=== PATIENT | female | born 1990 ===

== ENCOUNTER 2025-04-23 08:07 | Outpatient (AMB) | payer OTHER, SELFPAY | END 2025-04-23 09:19 | disposition left against medical advice (07) | LOC: HO.HMGAL 08:07 | PROVIDERS: PCP Internal Medicine; Visit Provider Registered Nurse Emergency | DX: J30.89 Other allergic rhinitis (principal) | CPT/HCPCS: 95117; 95165 ==

== ENCOUNTER 2025-05-07 15:58 | Outpatient (AMB) | payer OTHER, SELFPAY ==
--- OUTSIDE RECORDS SUMMARY | 2025-05-07 18:40 | XMS_ITS | Clinical Summary ---
Author Organization [facility] Address [address] [place] [address] Care Team Providers Care Civil Design Technician Name Role Phone Darell Pitt MD Primary Care Provider [phone] Allergies Active Allergy Reactions Criticality Noted Date Comments Aspirin Medium 06/23/2023 Respiratory symptoms Apixaban 04/11/2018 Penicillins 04/11/2018 Medications Medication Sig Dispensed Refills Start Date End Date Status cetirizine (ZYRTEC) 10 MG tablet Take 1 tablet (10 mg total) by mouth daily. 0 Active medroxyPROGESTERone (DEPO-PROVERA) 150 MG/ML injection Inject 1 mL (150 mg total) into the muscle every 3 (three) months. 0 Active valsartan (DIOVAN) tablet 80 mg Take 1 tablet (80 mg total) by mouth daily. 0 05/27/2020 Active metFORMIN (GLUCOPHAGE) tablet 500 mg Take 1 tablet (500 mg total) by mouth daily. 1/2 a pill in 1am, 1/2 a pill in pm to total 500mg daily 0 Active omeprazole (PriLOSEC) 20 MG capsule Take 1 capsule (20 mg total) by mouth daily. 0 Active escitalopram (LEXAPRO) 5 MG tablet Take 1 tablet (5 mg total) by mouth daily. 0 Active Xarelto 10 MG tablet TAKE 1 TABLET BY MOUTH EVERY DAY 90 tablet 0 05/30/2024 Active Active Problems Problem Noted Date Diagnosed Date Type 2 diabetes mellitus wit hout complication, without long-term current use of insulin 01/15/2022 Portal vein thrombosis 08/08/2019 Secondary hypercoagulability disorder 08/08/2019 Gross hematuria 08/08/2019 Nephrolithiasis 08/08/2019 Social History Tobacco Use Types Packs/Day Years Used Date Smoking Tobacco: Never Smokeless Tobacco: Never Alcohol Use Standard Drinks/Week Comments Yes 0 (1 standard drink = 0.6 oz pur e alcohol) socially Sex and Gender Information Value Date Recorded Sex Assigned at Not on file Gender Identity Not on file Sexual Orientation Not on file Job Start Date Occupation Industry Not on file Not on file Not on file Last Filed Vital Signs Vital Sign Reading Time Taken Comments Blood Pressure 127/88 06/16/2023 9:02 AM EDT Pulse 77 06/16/2023 9:02 AM EDT Temperature 36.8 C (98.3 F) 06/16/2023 9:02 AM EDT Respiratory Rate - - Oxygen Saturation 99% 06/16/2023 9:02 AM EDT Inhaled Oxygen Concentration - - Weight 82.3 kg (181 lb 6.4 oz) 06/16/2023 9:02 A M EDT Height 156.2 cm (5' 1.5 ) 03/30/2022 9:01 AM EDT Body Mass Index 33.72 03/30/2022 9:01 AM EDT Plan of Treatment Health Maintenance Due Date Last Done Comments Hepatitis B Vaccines (1 of 3 - 3-dose series) 1989 Hepatitis C Screening 1989 COVID-19 Vaccine (#1) 1989 Pneumococcal Vaccine (1 of 2 - PCV) 1995 Depression Screening 2001 BMI Counseling 2007 Preventative Health Evaluation 2007 DTap / Tdap / Td (1 - Tdap) 2008 Cervical Cancer Screening (P ap Smear) 2010 Influenza Vaccine (#1) 2025 RSV Ped < 20 months Aged Out No longe r eligible based on patient's age to complete this topic Care Teams Civil Design Technician Relationship Specialty Start Date End Date Darell Pitt MD [address] [facility] [address] [place] [address] PCP - General Resource Protection Specialist 04/11/18
--- OUTSIDE RECORDS SUMMARY | 2025-05-07 18:40 | XMS_ITS | Clinical Summary ---
Author Organization [facility] Address [address] [place] [address] Phone Care Team Providers Care Stone And Concrete Washer Name Role Phone Darell Pitt MD Primary Care Provider [phone] Allergies Active Allergy Reactions Criticality Noted Date Comments Apixaban 04/11/2018 Aspirin Medium 06/23/2023 Respiratory symptoms Cefprozil Rash Low 12/20/2023 Penicillins 04/11/2018 Medications valsartan (DIOVAN) 80 mg tablet Take 2 tablets (160 mg total) by mouth 1 (one) time each day. Active Mounjaro 5 mg/0.5 mL injection INJECT 5 MG BY SUBCUTANEOUS ROUTE ONCE WEEKLY FOR 30 DAYS 5 Active omeprazole (PriLOSEC) [address] capsule Take 1 capsule (40 mg total) by mouth 1 (one) time each day. before a meal 5 Active metFORMIN (GLUCOPHAGE) 500 mg tablet Take 1 tablet (500 mg total) by mouth. Active escitalopram (LEXAPRO) 5 mg tablet Take 1 tablet (5 mg total) by mouth 1 (one) time each day. Active cetirizine (ZyrTEC) 10 mg tablet Take 1 tablet (10 mg total) by mouth 1 (one) time each day. Active Xarelto 10 mg tablet TAKE 1 TABLET BY MOUTH 1 TIME EACH DAY. 90 tablet 1 5 Active Active Problems Problem Noted Date Diagnosed Date Secondary hypercoagulability disorder (CMS/HCC V 24) 08/08/2019 Portal vein thrombosis 08/08/2019 Gross hematuria 08/08/2019 Medical History Medical History Date Comments Diabetes mellitus (CMS/HCC V24, CMS/HCC V28) DX:Diabetes mellitus (HCC) Social History Tobacco Use Types Packs/Day Years Used Date Smoking Tobacco: Never Smokeless Tobacco: Never Tobacco Cessation:Counseling Given: Not Answered Alcohol Use Standard Drinks/Week Comments Yes 0 (1 standard drink = 0.6 oz pur e alcohol) Comments Unknown Sex and Gender Information Value Date Recorded Sex Assigned at Female 12/26/2024 5:36 PM EDT Legal Sex Female 1:10 PM EST Gender Identity Female 12/26/2024 5:36 PM EDT Sexual Orientation Not on file Obstetrics History Last Filed Vital Signs Vital Sign Reading Time Taken Comments Blood Pressure 115/77 12/27/2024 9:05 AM EDT Pulse 71 12/27/2024 9:05 AM EDT Temperature 36.5 C (97.7 F) 12/27/2024 9:05 AM EDT Respiratory Rate - - Oxygen Saturation 100% 12/27/2024 9:05 AM EDT Inhaled Oxygen Concentration - - Weight 53 kg (116 lb 12.8 oz) 12/27/2024 9:05 AM EDT Height 157.5 cm (5' 2 ) 12/27/2024 9:05 AM EDT Body Mass Index 21.36 12/27/2024 9:05 AM EDT Plan of Treatment Upcoming Encounters Date Type Department Care Team (Late st Contact Info) Description 12/26/2025 3:45 PM EDT Office Visit [facility] Hematology Oncology [address] [place] [address] Angelita Holt MD [address] [place] [address] Health Maintenance Due Date Last Done Comments Diabetes: Annual GFR (Glomerular Filtration Rate) 1989 Diabetes: Annual Foot Exam 1999 Diabetes: Annual Retina Eye Exam 1999 DTaP,Tdap,and Td Vaccines (1 - Tdap) 2008 Hepatitis B Vaccines (1 of 3 - 19+ 3-dose series) 2008 Cervical Cancer Screening: P ap Smear 2010 Cholesterol Screening (Lipid Panel) 08/08/2022 HIV Screening 08/08/2022 Hepatitis C Screening 08/08/2022 Social Influencers of Health Screening 08/08/2022 Diabetes: Annual Urine Albumin-Creatinine Ratio (uACR) 08/27/2022 Diabetes: Blood Sugar Contro l Test (HGBA1C) 08/27/2022 Depression Screening 08/30/2024 COVID-19 Vaccine (3 - 2024-2 6 season) 2025 02/07/2021, 12/28/2020 Influenza Vaccine (#1) 2025 HIB Vaccines Aged Out No longer eligi ble based on patient's age to complete this topic HPV Vaccines Aged Out No longer eligi ble based on patient's age to complete this topic Hepatitis A Vaccines Aged Out No long er eligible based on patient's age to complete this topic IPV Vaccines Aged Out No longer eligi ble based on patient's age to complete this topic MMR Vaccines Aged Out No longer eligi ble based on patient's age to complete this topic Meningococcal ACWY Vaccine Aged Out N o longer eligible based on patient's age to complete this topic Meningococcal B Vaccine Aged Out No l onger eligible based on patient's age to complete this topic Pneumococcal Vaccine: Pediatrics (0 to 5 Years) and At-Risk Patients (6 to 49 Years) Aged Out No longer eligible b ased on patient's age to complete this topic RSV Immunization Patients Under 20 months Aged Out No longer eligible b ased on patient's age to complete this topic Varicella Vaccines Aged Out No longer eligible based on patient's age to complete this topic Insurance [facility] [place] [address] Care Teams Stone And Concrete Washer Relationship Specialty Start Date End Date Darell Pitt MD [address] [place] [address] PCP - General Internal Medicine 04/21/18
--- OUTSIDE RECORDS SUMMARY | 2025-05-07 18:40 | XMS_ITS | Clinical Summary ---
Author Organization [facility] Address [address] [place] [id number] Phone Care Team Providers Care Ceo Na Name Role Phone Noreen Cortes NP Primary Care Provid er Allergies Active Allergy Reactions Criticality Noted Date Comments Apixaban 04/11/2018 Aspirin Medium 06/23/2023 Respiratory symptoms Cefprozil Rash Low 12/20/2023 Penicillins 04/11/2018 Medications No known medications Active Problems No known active problems Social History Tobacco Use Types Packs/Day Years Used Date Smoking Tobacco: Never Assessed Education Answer Date Recorded Are you interested in more education? Not on debbie e 12/20/2023 Are you concerned about learning? Not on file 12/20/2023 No 12/20/2023 No 12/20/2023 Digital Access Answer Date Recorded No 12/20/2023 No 12/20/2023 Reliable internet access at home? Not on file 12/20/2023 Device with a working camera? Not on file Comments Unknown Sex and Gender Information Value Date Recorded Sex Assigned at Not on file Legal Sex Female 10:58 AM EDT Gender Identity Not on file Sexual Orientation Not on file Plan of Treatment Health Maintenance Due Date Last Done Comments Adult Td,Tdap Booster 1989 DEPRESSION SCREENING 2001 SMOKING Hx and SMOKELESS TOBACCO SCREENING 2002 HEPATITIS C SCREENING 2007 HIV ONE-TIME SCREENING (18-6 5 YEARS) 2007 PAP SMEAR 2010 INFLUENZA VACCINE (#1) 2025 COVID-19 VACCINE (2024-2 6 season) 2025 02/07/2021, 12/28/2020 HEPATITIS A VACCINES Aged Out No long er eligible based on patient's age to complete this topic HIB VACCINES Aged Out No longer eligi ble based on patient's age to complete this topic MENINGOCOCCAL VACCINES (ACWY) Aged Out No longer eligible based on patient's age to complete this topic MENINGOCOCCAL VACCINES (B) Aged Out N o longer eligible based on patient's age to complete this topic PNEUMOCOCCAL VACCINES (0-49 years) Aged Out No longer eligible b ased on patient's age to complete this topic Medical Devices Not on file Insurance [address] [place], [place] [address]O [facility] Care Teams Ceo Na Relationship Specialty Start Date End Date Noreen Cortes NP [address] [place] [address] PCP - General Nurse Practitioner 12/20/23 Additional Source Comments The information contained in this document represents components of the legal health record. It is not the complete legal health record.[facility]
== END 2025-05-07 16:05 | disposition home or self-care (01) ==
LOC: HO.HMGAL 15:58
PROVIDERS: PCP Internal Medicine; Visit Provider Registered Nurse Emergency
DX: J30.89 Other allergic rhinitis (principal)
CPT/HCPCS: 95117; 95165

== ENCOUNTER 2025-06-04 14:57 | Outpatient (AMB) | payer OTHER, SELFPAY ==
--- OUTSIDE RECORDS SUMMARY | 2025-06-04 17:19 | XMS_ITS | Clinical Summary ---
Author Organization [facility] Address [address] [place] [address] Phone Care Team Providers Care Extractions Technologist Name Role Phone Noreen Cortes NP Primary [...] Not on file Insurance [address] [place], [place] [address]O [facility] Care Teams Extractions Technologist Relationship Specialty Start Date End Date Noreen Cortes NP [address] [place] [address] PCP - General Nurse Practitioner 12/20/23 Additional Source Comments The information contained in this document represents components of the legal health record. It is not the complete legal health record.[facility]
--- OUTSIDE RECORDS SUMMARY | 2025-06-04 17:19 | XMS_ITS | Clinical Summary ---
Author Organization [facility] Address [address] [place] [address] Phone Care Team Providers Care Car Escort Name Role Phone Darell Pitt MD Primary Care Provider [phone] Allergies Active Allergy Reactions Criticality Noted Date [...] Description 12/26/2025 3:45 PM EDT Office Visit [facility] Hematology Oncology [address] [place] [phone] Angelita Holt MD [address] [place] [phone] Health Maintenance Due Date Last Done Comments Diabetes: Annual GFR (Glomerular Filtration Rate) 1989 Diabetes: Annual Foot Exam 1999 Diabetes: Annual Retina Eye Exam 1999 DTaP,Tdap,and Td Vaccines (1 - Tdap) 2008 Hepatitis B Vaccines (1 of 3 - 19+ 3-dose series) 2008 Cervical Cancer Screening: P ap Smear 2010 HPV Vaccines (1 - 3-dose SCD M series) 2016 Cholesterol Screening (Lipid Panel) 08/08/2022 HIV Screening 08/08/2022 Hepatitis C Screening 08/08/2022 Social Influencers of Health Screening 08/08/2022 Diabetes: Annual Urine Albumin-Creatinine Ratio (uACR) 08/27/2022 Diabetes: Blood Sugar Contro l Test (HGBA1C) 08/27/2022 Depression Screening 08/30/2024 COVID-19 Vaccine (3 - 2024-2 6 season) 2025 02/07/2021, 12/28/2020 Influenza Vaccine (#1) 2025 RSV Immunization Adult Patients (1 - 1-dose 75+ series) 2064 HIB Vaccines Aged Out No longer eligi [...] patient's age to complete this topic Insurance [facility] Care Teams Car Escort Relationship Specialty Start Date End Date Darell Pitt MD [address] [place] [address] PCP - General Internal Medicine 04/21/18
--- OUTSIDE RECORDS SUMMARY | 2025-06-04 17:19 | XMS_ITS | Clinical Summary ---
Author Organization [facility] Address [address] [place] [address] Care Team Providers Care Pet Groomer Name Role Phone Darell Pitt MD Primary Care Provider [phone] Allergies Active Allergy Reactions Criticality Noted Date [...] age to complete this topic Care Teams Pet Groomer Relationship Specialty Start Date End Date Darell Pitt MD [address] [facility] [address] [place] [address] PCP - General Lockstitch Sleeve Setter 04/11/18
== END 2025-06-04 14:58 | disposition home or self-care (01) ==
LOC: HO.HMGAL 14:57
PROVIDERS: PCP Nurse Practitioner Primary Care; Visit Provider Registered Nurse Emergency
DX: J30.89 Other allergic rhinitis (principal)
CPT/HCPCS: 95117; 95165

== ENCOUNTER 2025-07-11 08:14 | Outpatient (AMB) | payer OTHER, SELFPAY ==
--- OUTSIDE RECORDS SUMMARY | 2025-07-11 08:19 | XMS_ITS | Clinical Summary ---
Author Organization [facility] Address [address] [place] [address] Care Team Providers Care Ground Service Equipment Mechanic Name Role Phone Darell Pitt MD Primary Care Provider [phone] Allergies Active Allergy Reactions Criticality Noted Date [...] age to complete this topic Care Teams Ground Service Equipment Mechanic Relationship Specialty Start Date End Date Darell Pitt MD [address] [facility] [address] [place] [address] PCP - General Customer Services Supervisor 04/11/18
--- OUTSIDE RECORDS SUMMARY | 2025-07-11 08:19 | XMS_ITS | Clinical Summary ---
Author Organization [facility] Address [address] [place] [address] Phone Care Team Providers Care Loop Drier Operator Name Role Phone Darell Pitt MD Primary Care Provider [phone] Allergies Active Allergy Reactions Criticality Noted Date [...] Portal vein thrombosis 08/08/2019 Gross hematuria 08/08/2019 Encounters Date Type Department Care Team Description 06/28/2025 Telephone Gastroenterology - [address] [phone] Rogelio Chan MD from Last 3 Months Medical History Medical History Date Comments Diabetes [...] Description 12/26/2025 3:45 PM EDT Office Visit [facility] Hematology Oncology [address] [place] [phone] Seamus-Angelita Newman MD [address] [place] [phone] 02/04/2026 11:40 AM EDT Consult Gastroenterology - [address] [phone] Naya Freed NP [address] [phone] Health Maintenance Due Date Last Done Comments [...] patient's age to complete this topic Insurance [facility] Care Teams Loop Drier Operator Relationship Specialty Start Date End Date Darell Pitt MD [address] [place] [address] PCP - General Internal Medicine 04/21/18
--- OUTSIDE RECORDS SUMMARY | 2025-07-11 08:19 | XMS_ITS | Clinical Summary ---
Author Organization [facility] Address [address] [place] [address] Phone Care Team Providers Care Equipment Technician Name Role Phone Noreen Cortes NP Primary [...] patient's age to complete this topic IPV VACCINES Aged Out No longer eligi ble [...] topic Medical Devices Not on file Insurance HMO O [facility] [place] [address] [place] [address] HMO Care Teams Equipment Technician Relationship Specialty Start Date End Date Noreen Cortes NP [address] [place] [address] PCP - General Nurse Practitioner 12/20/23 Additional Source Comments The information contained in this document represents components of the legal health record. It is not the complete legal health record.[facility]
== END 2025-07-11 08:15 | disposition home or self-care (01) ==
LOC: HO.HMGAL 08:14
PROVIDERS: PCP Nurse Practitioner Primary Care; Visit Provider Registered Nurse Emergency
DX: J30.89 Other allergic rhinitis (principal)
CPT/HCPCS: 95117; 95165

== ENCOUNTER 2025-08-06 15:58 | Outpatient (AMB) | payer OTHER, SELFPAY ==
--- OUTSIDE RECORDS SUMMARY | 2025-08-07 01:35 | XMS_ITS | Clinical Summary ---
Author Organization [facility] Prior to 01/27/25 Address [address] [place] [address] Care Team Providers Care Student Records Coordinator Name Role Phone Darell Pitt MD Primary Care Provider [phone] Allergies Active Allergy Reactions Criticality Noted Date [...] age to complete this topic Care Teams Student Records Coordinator Relationship Specialty Start Date End Date Darell Pitt MD [address] [place] [address] PCP - General Gas Operations Superintendent 04/11/18
--- OUTSIDE RECORDS SUMMARY | 2025-08-07 01:35 | XMS_ITS | Clinical Summary ---
Author Organization [facility] Address [address] [place] [address] Phone Care Team Providers Care Kindergarten Paraprofessional Name Role Phone Noreen Cortes NP Primary [...] Not on file Insurance [address] [place], [place] [address]O [facility] Care Teams Kindergarten Paraprofessional Relationship Specialty Start Date End Date Noreen Cortes NP [address] [place] [address] PCP - General Nurse Practitioner 12/20/23 Additional Source Comments The information contained in this document represents components of the legal health record. It is not the complete legal health record.[facility]
--- OUTSIDE RECORDS SUMMARY | 2025-08-07 01:35 | XMS_ITS | Clinical Summary ---
Author Organization [facility] Address [address] [place] [address] Phone Care Team Providers Care Business Office Director Name Role Phone Darell Pitt MD Primary Care Provider [phone] Allergies Active Allergy Reactions Criticality Noted Date [...] Noted Date Diagnosed Date Secondary hypercoagulability disorder 08/08/2019 Portal vein thrombosis 08/08/2019 Gross hematuria 08/08/2019 Encounters Date Type Department Care Team Description 06/28/2025 Telephone Gastroenterology - [address] [phone] Rogelio Chan MD from Last 3 Months [...] PM EDT Sexual Orientation Not on file Last Filed Vital Signs [...] Description 12/26/2025 3:45 PM EDT Office Visit [facility] Hematology Oncology [address] [place] [address] Angelita Holt MD [address] [place] [phone] 02/04/2026 11:40 AM EDT Consult Gastroenterology - [address] [phone] Naya Freed NP [address] [address] Health Maintenance Due Date Last Done Comments [...] patient's age to complete this topic Insurance [facility] Care Teams Business Office Director Relationship Specialty Start Date End Date Darell Pitt MD [address] [place] [address] PCP - General Internal Medicine 04/21/18
== END 2025-08-06 15:58 | disposition home or self-care (01) ==
LOC: HO.HMGAL 15:58
PROVIDERS: PCP Nurse Practitioner Primary Care; Visit Provider Registered Nurse Emergency
DX: J30.89 Other allergic rhinitis (principal)
CPT/HCPCS: 95117; 95165